=== PATIENT | male | born 1965 | race Caucasian/White ===

== ENCOUNTER 2021-04-12 20:50 | Emergency (ER) | payer SELFPAY ==
[~2021-04-12] VITALS: Ht 172.7 cm; Wt 90.7 kg
[2021-04-12 21:00] VITALS: BP 132/84
== END 2021-04-12 21:25 | disposition left against medical advice (07) ==
LOC: ER 20:50
DX: Z53.21 Procedure and treatment not carried out due to patient leaving prior to being seen by health care provider (principal)